=== PATIENT | male | born 1985 | race Caucasian/White ===

== ENCOUNTER 2017-12-03 14:35 | Outpatient (CLI) | payer OTHER | END 2017-12-03 14:36 | disposition home or self-care (01) | LOC: LAB.WCP 14:35 | PROVIDERS: ATTEND Family Medicine | DX: R05 Cough (principal) | CPT/HCPCS: 87275; 87276 ==

== ENCOUNTER 2019-02-02 15:41 | Outpatient (CLI) | payer OTHER ==
--- NOTE | 2019-02-03 11:42 | XRAY Report ---
Reason: BACK PAIN,THORACIC REGION Procedure Date: 02/02/2019 Accession Number: [id number] / [id number] Procedure: XRN - Thoracic Spine 3 View CPT Code: FULL RESULT: EXAM: THORACIC SPINE RADIOGRAPHY EXAM DATE: 02/02/2019 04:01 PM. CLINICAL HISTORY: Back pain, thoracic region. COMPARISON: None. TECHNIQUE: 2 views. FINDINGS: Alignment: There is a mild S-shaped thoracic scoliosis in the form of a levoconvex curvature at T3-T4 followed by a dextroconvex curvature at T8. There is mild thoracic kyphosis without single level compression fracture. No listhesis is seen. Bones: Cervical riblet at C7 is noted. No fractures or bone lesions. Disks: Normal. Disk heights are maintained. Soft Tissues: Normal. The visualized lungs and cardiomediastinal silhouette are normal. IMPRESSION: Mild thoracic scoliosis as described. RADIA
== END 2019-02-02 15:42 | disposition home or self-care (01) ==
LOC: DI.N 15:41
PROVIDERS: ATTEND Physician Assistant Medical
DX: M41.84 Other forms of scoliosis, thoracic region (principal)
CPT/HCPCS: 72072

== ENCOUNTER 2019-02-09 14:27 | Outpatient (CLI) | payer OTHER ==
--- NOTE | 2019-02-10 16:20 | XRAY Report ---
Reason: LOW BACK PAIN, ACUTE Procedure Date: 02/09/2019 Accession Number: [id number] / [id number] Procedure: XR - Lumbar Spine 2 View CPT Code: FULL RESULT: EXAM: LUMBOSACRAL SPINE RADIOGRAPHY EXAM DATE: 02/09/2019 02:40 PM. CLINICAL HISTORY: Low back pain, acute. T12-L1 back pain after falling and hitting the back on the counter 2 weeks ago. COMPARISONS: THORACIC SPINE 3 VIEW 02/02/2019 4:02 PM. TECHNIQUE: 2 views. FINDINGS: Alignment: Very slight left convex scoliosis of the lumbar spine, possibly positional. There is approximately 5 mm retrolisthesis of L1 relative to L2. There is approximately 4 mm retrolisthesis of L2 relative to L3. Bones: Five sot-egt-ktnkorp lumbar vertebral bodies are present. No fractures or bone lesions. Disks: Multilevel disk space height loss as well as endplate osteophytosis. Facets: There is moderate lower lumbar hypertrophic facet arthropathy. Sacroiliac Joints: No diastases. Soft Tissues: Normal. The visualized bowel gas pattern is normal. IMPRESSION: 1. No acute displaced fracture. 2. Multilevel degenerative change. 3. There is retrolisthesis of L1 relative to L2 end of L2 relative to L3 as described above. RADIA
== END 2019-02-09 14:28 | disposition home or self-care (01) ==
LOC: DI 14:27
PROVIDERS: ATTEND Physician Assistant Medical
DX: M51.36 Other intervertebral disc degeneration, lumbar region (principal); M47.816 Spondylosis without myelopathy or radiculopathy, lumbar region; M43.16 Spondylolisthesis, lumbar region
CPT/HCPCS: 72100

== ENCOUNTER 2019-06-19 12:36 | Outpatient (CLI) | payer OTHER ==
--- NOTE | 2019-06-20 02:20 | XRAY Report ---
Reason: fall on to LT [id number] pain with abdution Procedure Date: 06/19/2019 Accession Number: [id number] / [id number] Procedure: XR - Shoulder 3 View LT CPT Code: FULL RESULT: EXAM: LEFT SHOULDER RADIOGRAPHY EXAM DATE: 06/19/2019 12:57 PM. CLINICAL HISTORY: Fall on to left shoulder 06/18/2019 pain with abdution. COMPARISON: None. TECHNIQUE: 3 views. FINDINGS: Bones: Normal. No fracture or bone lesion. Joints: The glenohumeral and acromioclavicular joints are normal. Soft tissues: The visualized hemithorax is unremarkable. No soft tissue swelling. IMPRESSION: Normal shoulder radiography. RADIA
== END 2019-06-19 12:37 | disposition home or self-care (01) ==
LOC: DI 12:36
PROVIDERS: ATTEND Family Medicine
DX: M25.512 Pain in left shoulder (principal)

== ENCOUNTER 2020-02-04 14:32 | Outpatient (CLI) | payer OTHER ==
--- NOTE | 2020-02-04 21:09 | XRAY Report ---
Reason: LEFT HIP PAIN Procedure Date: 02/04/2020 Accession Number: [id number] / [id number] Procedure: WCP - Hip 1 View LT CPT Code: Final Report FULL RESULT: EXAM: LEFT HIP RADIOGRAPHY EXAM DATE: 02/04/2020 12:10 PM. CLINICAL HISTORY: LEFT HIP PAIN. COMPARISON: LUMBAR SPINE 2 VIEW 02/09/2019 2:32 PM. TECHNIQUE: 2 views. FINDINGS: Bones: No evidence of acute fracture seen. There is well-corticated cortical irregularity about the superior lateral aspect of the acetabulum, with associated sclerosis. This was also noted on lumbar spine exam of 02/09/2019. Joints: Grossly unremarkable. Soft Tissues: Normal. No soft tissue swelling. IMPRESSION: 1. No evidence of acute fracture noted, with well-corticated irregularity about the superior lateral aspect of the left acetabulum with associated sclerosis. Correlate for possible remote fracture. RADIA
== END 2020-02-04 23:59 | disposition home or self-care (01) ==
LOC: DI.WCP 14:32
PROVIDERS: ATTEND Family Medicine
DX: R93.7 Abnormal findings on diagnostic imaging of other parts of musculoskeletal system (principal)

== ENCOUNTER 2020-03-10 07:19 | Outpatient (CLI) | payer OTHER ==
--- NOTE | 2020-03-10 14:22 | MRI Report ---
PROCEDURE: Hip LT W/O INDICATIONS: LEFT HIP PX TECHNIQUE: Noncontrast coronal T1 spin echo and STIR through the bony pelvis. Coronal and axial T2 fast spin ec ho with fat saturation, sagittal T1 spin echo, and oblique axial T2 fast spin echo with fat saturatio n through the hip. COMPARISON: Pelvic and hip radiographs dated 02/04/2020. FINDINGS: Image quality: Excellent. Bones and joints: There is mild to moderate left hip joint space narrowing with subchondral sclerosis and marginal osteophyte formation. No intraosseous lesions or fractures. No avascular necrosis of t he femoral heads. The visualized lower lumbar spine appears normally aligned. Small amount of left hip joint effusion is seen. Tendons: The gluteus medius and minimus tendons appear intact, without associated muscle atrophy. T he iliopsoas tendon appears intact, without adjacent bursal fluid collections. The origin of the ham string tendon is intact at the ischial tuberosity. Labrum and cartilage: There is signal abnormality and contour irregularity involving superior anterio r left hip labrum concerning for labral tear. Thinning of articular cartilages of left femoral head i s also seen. The alpha angle of the femur is within normal limits at less than 55 degrees. Soft tissues: Visualized muscles demonstrate normal bulk and internal signal. The proximal sciatic neurovascular bundle appears normal adjacent to the hamstring tendons. No free pelvic fluid. Bladde r wall thickness is normal. Genitourinary structures and bowel loops appear normal where visualized. IMPRESSION: 1. Mild to moderate left hip joint osteoarthritis. No hip fracture or dislocation. No evidence of ian scular necrosis of femoral head. 2. Suggestion of superior anterior left hip labral tear. 3. No gross muscle or tendon signal abnormality is seen in left hip. Reviewed by: Vito Watson MD on 03/10/2020 2:20 PM PDT Approved by: Vito Watson MD on 03/10/2020 2:20 PM PDT Station ID: [id number]
== END 2020-03-10 07:20 | disposition home or self-care (01) ==
LOC: DI 07:19
PROVIDERS: ATTEND Orthopaedic Surgery
DX: M16.12 Unilateral primary osteoarthritis, left hip (principal)

== ENCOUNTER 2021-10-19 15:50 | Outpatient (CLI) | payer OTHER ==
[2021-10-19 21:45] LABS: BASOPHILS % (AUTO) 0.6 %; EOSINOPHILS # (AUTO) 0.1 10^3/uL (0.0-0.7); EOSINOPHILS % (AUTO) 1.3 %; HCT - HEMATOCRIT 43.3 % (42.0-52.0); HGB - HEMOGLOBIN 14.5 g/dL (14.0-18.0); LYMPHOCYTES # (AUTO) 2.3 10^3/uL (1.5-3.5); LYMPHOCYTES % (AUTO) 32.6 %; MEAN CORPUSCULAR HEMOGLOBIN 31.3 pg (27.0-31.0); MEAN CORPUSCULAR HGB CONC 33.5 g/dL (32.0-36.0); MEAN CORPUSCULAR VOLUME 93.3 fL (80.0-94.0); MEAN PLATELET VOLUME 10.2 fL (7.4-11.4); MONOCYTES # (AUTO) 0.6 10^3/uL (0.0-1.0); MONOCYTES % (AUTO) 8.8 %; NEUTROPHILS % (AUTO) 56.6 %; PLT - PLATELET COUNT 395 10^3/uL (130-450); RED BLOOD COUNT 4.64 10^6/uL (4.70-6.10); RED CELL DISTRIBUTION WIDTH 12.2 % (12.0-15.0)
[2021-10-19 22:00] LABS: ALBUMIN 4.7 g/dL (3.2-5.5); ALBUMIN/GLOBULIN RATIO 1.6 (1.0-2.2); ALKALINE PHOSPHATASE 34 IU/L (42-121); ALT ALANINE AMINOTRANSFERASE 21 IU/L (10-60); AST ASPARTATE AMINOTRANSFERASE 24 IU/L (10-42); BILIRUBIN,TOTAL 1.6 mg/dL (0.2-1.0); BUN - BLOOD UREA NITROGEN 12 mg/dL (6-20); CALCIUM 9.1 mg/dL (8.5-10.3); CARBON DIOXIDE - CO2 26 mmol/L (21-32); CHLORIDE 98 mmol/L (101-111); CHOLESTEROL 201 mg/dL; CREATININE 1.1 mg/dL (0.6-1.2); GFR - MDRD 75 (>89); GLUCOSE 83 mg/dL (70-100); HDL CHOLESTEROL 68 mg/dL; POTASSIUM 3.7 mmol/L (3.5-5.0); SODIUM 136 mmol/L (135-145); TOTAL PROTEIN 7.7 g/dL (6.7-8.2); TRIGLYCERIDES 37 mg/dL
[2021-10-19 22:31] LABS: THYROID STIMULATING HORMONE 3.31 uIU/mL (0.34-5.60)
[2021-10-19 22:33] LABS: FREE T4 (FREE THYROXINE) 0.97 ng/dL (0.58-1.64)
== END 2021-10-19 15:51 | disposition home or self-care (01) ==
LOC: LAB.N 15:50
PROVIDERS: ATTEND Nurse Practitioner
DX: R53.83 Other fatigue (principal); Z13.220 Encounter for screening for lipoid disorders; R00.2 Palpitations
CPT/HCPCS: 36415; 80053; 80061; 81001; 81599; 82040; 83721; 84270; 84402; 84403; 84439; 84443; 85025; 87086

== ENCOUNTER 2021-10-20 08:00 | Outpatient (CLI) | payer OTHER ==
[2021-10-20 14:21] LABS: BILIRUBIN,URINE NEGATIVE (NEGATIVE); GLUCOSE, URINE (UA) NEGATIVE (NEGATIVE); KETONES,URINE (UA) NEGATIVE (NEGATIVE); LEUKOCYTE ESTERASE, URINE NEGATIVE (NEGATIVE); NITRITE,URINE NEGATIVE (NEGATIVE); OCCULT BLOOD,URINE NEGATIVE (NEGATIVE); PROTEIN,URINE NEGATIVE (NEGATIVE); UROBILINOGEN,URINE 0.2 (NORMAL) E.U./dL (NORMAL)
[2021-10-20 14:28] LABS: CLARITY,URINE CLEAR (CLEAR)
[2021-10-20 14:32] LABS: RBC,URINE 0-5 /HPF (0-5); SQUAMOUS EPITHELIAL CELL,UR NONE SEEN (<= Few); WBC,URINE 0-3 /HPF (0-3)
[2021-10-20 14:33] LABS: BACTERIA,URINE Rare /HPF (None Seen)
== END 2021-10-20 23:59 | disposition home or self-care (01) ==
LOC: LAB.N 08:00
PROVIDERS: ATTEND Nurse Practitioner
DX: R53.83 Other fatigue (principal)
CPT/HCPCS: 81001; 87086

== ENCOUNTER 2024-03-05 08:40 | Outpatient (CLI) | payer OTHER | END 2024-03-05 16:51 | disposition home or self-care (01) | LOC: LAB.N 08:40 | PROVIDERS: ATTEND Physician Assistant Medical | DX: J02.9 Acute pharyngitis, unspecified (principal) | CPT/HCPCS: 87070 ==